=== PATIENT | male | born 1955 | race Two or more races ===

== ENCOUNTER 2017-07-25 07:05 | Outpatient (CLI) | payer OTHER | END 2017-07-25 07:14 | disposition home or self-care (01) | LOC: LAB 07:05 | DX: C7A.010 Malignant carcinoid tumor of the duodenum (principal); C78.7 Secondary malignant neoplasm of liver and intrahepatic bile duct; D51.1 Vitamin B12 deficiency anemia due to selective vitamin B12 malabsorption with proteinuria; D69.3 Immune thrombocytopenic purpura; R97.0 Elevated carcinoembryonic antigen [CEA]; D51.0 Vitamin B12 deficiency anemia due to intrinsic factor deficiency; K31.83 Achlorhydria; K29.40 Chronic atrophic gastritis without bleeding; E53.8 Deficiency of other specified B group vitamins; I10 Essential (primary) hypertension; E03.8 Other specified hypothyroidism; N64.89 Other specified disorders of breast ==

== ENCOUNTER 2017-08-21 08:18 | Outpatient (CLI) | payer OTHER | END 2017-08-21 12:24 | disposition home or self-care (01) | LOC: TOM 08:18 | DX: C7A.010 Malignant carcinoid tumor of the duodenum (principal); C78.7 Secondary malignant neoplasm of liver and intrahepatic bile duct; D51.1 Vitamin B12 deficiency anemia due to selective vitamin B12 malabsorption with proteinuria; D69.3 Immune thrombocytopenic purpura; R97.0 Elevated carcinoembryonic antigen [CEA]; D51.0 Vitamin B12 deficiency anemia due to intrinsic factor deficiency; K31.83 Achlorhydria; K29.40 Chronic atrophic gastritis without bleeding; E53.8 Deficiency of other specified B group vitamins; I10 Essential (primary) hypertension; E03.8 Other specified hypothyroidism ==

== ENCOUNTER 2017-09-19 07:08 | Outpatient (CLI) | payer OTHER | END 2017-09-19 07:20 | disposition home or self-care (01) | LOC: LAB 07:08 | DX: C7A.010 Malignant carcinoid tumor of the duodenum (principal); C78.7 Secondary malignant neoplasm of liver and intrahepatic bile duct; D51.0 Vitamin B12 deficiency anemia due to intrinsic factor deficiency; D69.8 Other specified hemorrhagic conditions; R97.0 Elevated carcinoembryonic antigen [CEA]; K31.83 Achlorhydria; K29.40 Chronic atrophic gastritis without bleeding; E53.8 Deficiency of other specified B group vitamins; I10 Essential (primary) hypertension; E03.8 Other specified hypothyroidism; N60.11 Diffuse cystic mastopathy of right breast; N60.12 Diffuse cystic mastopathy of left breast; D50.8 Other iron deficiency anemias; D51.8 Other vitamin B12 deficiency anemias; R97.8 Other abnormal tumor markers ==

== ENCOUNTER 2017-10-17 10:26 | Emergency (ER) | payer OTHER ==
[~2017-10-17] VITALS: Ht 175.3 cm; Wt 82.1 kg
[2017-10-17] MEDS ORDERED: UROXATRAL10 MG PO (10:48)
[2017-10-17] MEDS ORDERED: LOSARTAN-HCTZ1 EAC2 (10:48)
[2017-10-17] MEDS ORDERED: VITAMIN B-121000 MCG PO (10:49)
[2017-10-17] MEDS ORDERED: AFINITOR10 MG (12:34)
== END 2017-10-17 15:26 | disposition home or self-care (01) ==
LOC: ER 10:26
DX: R50.9 Fever, unspecified (principal); D69.59 Other secondary thrombocytopenia; R53.81 Other malaise

== ENCOUNTER → 2017-10-19 06:20 | Outpatient (CLI) | payer OTHER ==
[~2017-10-19 06:20] MED LIST: AFINITOR10 MG; LOSARTAN-HCTZ1 EAC2; UROXATRAL10 MG PO; VITAMIN B-121000 MCG PO
== END | disposition home or self-care (01) ==
LOC: LAB 06:20
DX: D47.3 Essential (hemorrhagic) thrombocythemia (principal); B34.9 Viral infection, unspecified

== ENCOUNTER 2017-10-20 07:00 | Outpatient (CLI) | payer OTHER | END 2017-10-20 07:16 | disposition home or self-care (01) | LOC: TOM 07:00 | DX: C7A.010 Malignant carcinoid tumor of the duodenum (principal); C78.7 Secondary malignant neoplasm of liver and intrahepatic bile duct; D69.3 Immune thrombocytopenic purpura; R97.0 Elevated carcinoembryonic antigen [CEA]; D51.0 Vitamin B12 deficiency anemia due to intrinsic factor deficiency; K31.83 Achlorhydria; K29.40 Chronic atrophic gastritis without bleeding; E53.8 Deficiency of other specified B group vitamins; I10 Essential (primary) hypertension; E03.8 Other specified hypothyroidism; N64.89 Other specified disorders of breast; I26.99 Other pulmonary embolism without acute cor pulmonale | CPT/HCPCS: 71275 ==

== ENCOUNTER → 2017-10-28 06:19 | Outpatient (CLI) | payer OTHER | END | disposition home or self-care (01) | LOC: LAB 06:19 | DX: C7A.010 Malignant carcinoid tumor of the duodenum (principal); C78.7 Secondary malignant neoplasm of liver and intrahepatic bile duct; D51.1 Vitamin B12 deficiency anemia due to selective vitamin B12 malabsorption with proteinuria; D69.3 Immune thrombocytopenic purpura; R97.0 Elevated carcinoembryonic antigen [CEA]; D51.0 Vitamin B12 deficiency anemia due to intrinsic factor deficiency; K31.83 Achlorhydria; K29.40 Chronic atrophic gastritis without bleeding; E53.8 Deficiency of other specified B group vitamins; E03.8 Other specified hypothyroidism; N64.89 Other specified disorders of breast ==

== ENCOUNTER 2017-12-19 07:08 | Outpatient (CLI) | payer OTHER | END 2017-12-19 07:37 | disposition home or self-care (01) | LOC: LAB 07:08 | DX: C78.7 Secondary malignant neoplasm of liver and intrahepatic bile duct (principal); D51.1 Vitamin B12 deficiency anemia due to selective vitamin B12 malabsorption with proteinuria; C7A.010 Malignant carcinoid tumor of the duodenum; D69.3 Immune thrombocytopenic purpura; R97.0 Elevated carcinoembryonic antigen [CEA]; D51.0 Vitamin B12 deficiency anemia due to intrinsic factor deficiency; K31.83 Achlorhydria; K29.40 Chronic atrophic gastritis without bleeding; I10 Essential (primary) hypertension; D50.8 Other iron deficiency anemias; D51.8 Other vitamin B12 deficiency anemias ==

== ENCOUNTER 2018-02-13 07:09 | Outpatient (CLI) | payer OTHER | END 2018-02-13 07:14 | disposition home or self-care (01) | LOC: LAB 07:09 | DX: C7A.010 Malignant carcinoid tumor of the duodenum (principal); C78.7 Secondary malignant neoplasm of liver and intrahepatic bile duct; D51.1 Vitamin B12 deficiency anemia due to selective vitamin B12 malabsorption with proteinuria; D69.3 Immune thrombocytopenic purpura; R97.0 Elevated carcinoembryonic antigen [CEA]; D51.0 Vitamin B12 deficiency anemia due to intrinsic factor deficiency; K31.83 Achlorhydria; K29.40 Chronic atrophic gastritis without bleeding; E53.8 Deficiency of other specified B group vitamins; I10 Essential (primary) hypertension; E03.8 Other specified hypothyroidism; N64.89 Other specified disorders of breast ==

== ENCOUNTER 2018-03-27 02:06 | Emergency (ER) | payer OTHER ==
[~2018-03-27] VITALS: Ht 175.3 cm; Wt 78.0 kg
[2018-03-27] MEDS ORDERED: SYNTHROID50 MCG (02:44)
[2018-03-27] MEDS ORDERED: KETO10TA2 PO (05:23)
[2018-03-27] MEDS ORDERED: NORFLEX100MG PO (05:23)
== END 2018-03-27 05:30 | disposition home or self-care (01) ==
LOC: ER 02:06
DX: M54.5 Low back pain (principal)

== ENCOUNTER 2018-04-14 13:32 | Emergency (ER) | payer OTHER ==
[~2018-04-14] VITALS: Ht 175.3 cm; Wt 75.7 kg
[~2018-04-14 13:32] MED LIST changes: +KETO10TA2 PO; +NORFLEX100MG PO; +SYNTHROID50 MCG
[2018-04-14] MEDS ORDERED: SANDOSTATIN LAR10 MG (13:38)
== END 2018-04-14 15:48 | disposition home or self-care (01) ==
LOC: ER 13:32
DX: I16.0 Hypertensive urgency (principal); I10 Essential (primary) hypertension; M79.662 Pain in left lower leg; M79.661 Pain in right lower leg

== ENCOUNTER 2018-04-17 07:08 | Outpatient (CLI) | payer OTHER ==
[~2018-04-17 07:08] MED LIST changes: +SANDOSTATIN LAR10 MG
== END 2018-04-17 07:19 | disposition home or self-care (01) ==
LOC: LAB 07:08
DX: C7A.010 Malignant carcinoid tumor of the duodenum (principal); C78.7 Secondary malignant neoplasm of liver and intrahepatic bile duct; D51.1 Vitamin B12 deficiency anemia due to selective vitamin B12 malabsorption with proteinuria; D69.3 Immune thrombocytopenic purpura; R97.0 Elevated carcinoembryonic antigen [CEA]; D51.0 Vitamin B12 deficiency anemia due to intrinsic factor deficiency; K31.83 Achlorhydria; K29.40 Chronic atrophic gastritis without bleeding; E53.8 Deficiency of other specified B group vitamins; I10 Essential (primary) hypertension; E03.8 Other specified hypothyroidism; N64.89 Other specified disorders of breast; D50.8 Other iron deficiency anemias; D51.8 Other vitamin B12 deficiency anemias

== ENCOUNTER 2018-05-31 06:36 | Outpatient (CLI) | payer OTHER | END 2018-05-31 06:40 | disposition home or self-care (01) | LOC: LAB 06:36 | DX: C7A.010 Malignant carcinoid tumor of the duodenum (principal); C78.7 Secondary malignant neoplasm of liver and intrahepatic bile duct; D51.1 Vitamin B12 deficiency anemia due to selective vitamin B12 malabsorption with proteinuria; D69.3 Immune thrombocytopenic purpura; R97.0 Elevated carcinoembryonic antigen [CEA]; D51.0 Vitamin B12 deficiency anemia due to intrinsic factor deficiency; K31.83 Achlorhydria; K29.40 Chronic atrophic gastritis without bleeding; I10 Essential (primary) hypertension; E03.8 Other specified hypothyroidism; N64.89 Other specified disorders of breast; D50.0 Iron deficiency anemia secondary to blood loss (chronic); D51.8 Other vitamin B12 deficiency anemias; R97.8 Other abnormal tumor markers; R97.20 Elevated prostate specific antigen [PSA]; E11.9 Type 2 diabetes mellitus without complications ==

== ENCOUNTER 2018-06-10 16:06 | Outpatient (CLI) | payer OTHER | END 2018-06-10 16:12 | disposition home or self-care (01) | LOC: LAB 16:06 | DX: C7A.010 Malignant carcinoid tumor of the duodenum (principal); Z51.81 Encounter for therapeutic drug level monitoring ==

== ENCOUNTER 2018-06-16 07:12 | Outpatient (CLI) | payer OTHER | END 2018-06-16 07:24 | disposition home or self-care (01) | LOC: TOM 07:12 | DX: C7A.010 Malignant carcinoid tumor of the duodenum (principal); C78.7 Secondary malignant neoplasm of liver and intrahepatic bile duct; D51.1 Vitamin B12 deficiency anemia due to selective vitamin B12 malabsorption with proteinuria; D69.3 Immune thrombocytopenic purpura; R97.0 Elevated carcinoembryonic antigen [CEA]; D51.0 Vitamin B12 deficiency anemia due to intrinsic factor deficiency; K31.83 Achlorhydria; K29.40 Chronic atrophic gastritis without bleeding; E53.8 Deficiency of other specified B group vitamins; I10 Essential (primary) hypertension; E03.8 Other specified hypothyroidism ==

== ENCOUNTER 2018-12-18 07:14 | Outpatient (CLI) | payer OTHER | END 2018-12-18 07:32 | disposition home or self-care (01) | LOC: LAB 07:14 | DX: E03.8 Other specified hypothyroidism (principal); C7A.010 Malignant carcinoid tumor of the duodenum; C78.7 Secondary malignant neoplasm of liver and intrahepatic bile duct; D69.3 Immune thrombocytopenic purpura; R97.0 Elevated carcinoembryonic antigen [CEA]; K31.83 Achlorhydria; K29.40 Chronic atrophic gastritis without bleeding; I10 Essential (primary) hypertension; D50.8 Other iron deficiency anemias; D51.8 Other vitamin B12 deficiency anemias; E78.2 Mixed hyperlipidemia; R97.8 Other abnormal tumor markers ==

== ENCOUNTER → 2019-05-21 07:15 | Outpatient (CLI) | payer OTHER | END | disposition home or self-care (01) | LOC: LAB 07:15 | DX: C7A.010 Malignant carcinoid tumor of the duodenum (principal); C78.7 Secondary malignant neoplasm of liver and intrahepatic bile duct; D69.3 Immune thrombocytopenic purpura; R97.0 Elevated carcinoembryonic antigen [CEA]; K31.83 Achlorhydria; K29.40 Chronic atrophic gastritis without bleeding; I10 Essential (primary) hypertension; E03.8 Other specified hypothyroidism; N63.10 Unspecified lump in the right breast, unspecified quadrant; N63.20 Unspecified lump in the left breast, unspecified quadrant; D50.8 Other iron deficiency anemias; D51.8 Other vitamin B12 deficiency anemias; E78.2 Mixed hyperlipidemia; R97.8 Other abnormal tumor markers ==

== ENCOUNTER 2019-08-06 07:15 | Outpatient (CLI) | payer OTHER | END 2019-08-06 07:26 | disposition home or self-care (01) | LOC: LAB 07:15 | DX: D50.8 Other iron deficiency anemias (principal); I10 Essential (primary) hypertension; C7A.010 Malignant carcinoid tumor of the duodenum; C78.7 Secondary malignant neoplasm of liver and intrahepatic bile duct; D69.3 Immune thrombocytopenic purpura; R97.0 Elevated carcinoembryonic antigen [CEA]; K31.83 Achlorhydria; K29.40 Chronic atrophic gastritis without bleeding; E03.8 Other specified hypothyroidism; N63.10 Unspecified lump in the right breast, unspecified quadrant; N63.20 Unspecified lump in the left breast, unspecified quadrant; D51.8 Other vitamin B12 deficiency anemias; R97.8 Other abnormal tumor markers ==

== ENCOUNTER 2019-08-24 14:40 | Emergency (ER) | payer OTHER ==
[~2019-08-24] VITALS: Ht 175.3 cm; Wt 72.1 kg
[2019-08-24] MEDS ORDERED: GLYCOTROL CAPS1 EACH PO (15:34)
[2019-08-24] MEDS ORDERED: LEVOTHYROXINE25 MCG PO (15:34)
[2019-08-24] MEDS ORDERED: UROXATRAL10 MG PO (15:35)
[2019-08-24] MEDS ORDERED: SOMATULINE (15:35)
[2019-08-24] MEDS ORDERED: ZESTRIL40 M1 PO (15:35)
== END 2019-08-24 21:50 | disposition home or self-care (01) ==
LOC: ER 14:40
DX: J06.9 Acute upper respiratory infection, unspecified (principal); B96.0 Mycoplasma pneumoniae [M. pneumoniae] as the cause of diseases classified elsewhere

== ENCOUNTER → 2019-10-24 | Emergency (ER) | payer OTHER ==
[~2019-10-24] VITALS: Ht 175.3 cm; Wt 72.1 kg
[~2019-10-24] MED LIST changes: +GLYCOTROL CAPS1 EACH PO; +LEVOTHYROXINE25 MCG PO; +SOMATULINE; +UROXATRAL10 MG; +ZESTRIL40 M1 PO; +[UNRECOGNIZED DRUG - OTHER]
== END | disposition home or self-care (01) ==
LOC: ER 10:43
DX: K29.70 Gastritis, unspecified, without bleeding (principal)

== ENCOUNTER 2019-10-27 07:14 | Outpatient (CLI) | payer OTHER | END 2019-10-27 07:20 | disposition home or self-care (01) | LOC: LAB 07:14 | DX: C7A.010 Malignant carcinoid tumor of the duodenum (principal); C78.7 Secondary malignant neoplasm of liver and intrahepatic bile duct; D50.8 Other iron deficiency anemias; I10 Essential (primary) hypertension; E03.8 Other specified hypothyroidism; R97.0 Elevated carcinoembryonic antigen [CEA]; R97.8 Other abnormal tumor markers; D51.1 Vitamin B12 deficiency anemia due to selective vitamin B12 malabsorption with proteinuria; D69.3 Immune thrombocytopenic purpura; D51.0 Vitamin B12 deficiency anemia due to intrinsic factor deficiency; K31.83 Achlorhydria; K29.40 Chronic atrophic gastritis without bleeding ==

== ENCOUNTER 2019-11-26 07:04 | Outpatient (CLI) | payer OTHER | END 2019-11-26 07:14 | disposition home or self-care (01) | LOC: LAB 07:04 | DX: D50.8 Other iron deficiency anemias (principal); I10 Essential (primary) hypertension; C7A.010 Malignant carcinoid tumor of the duodenum; C78.7 Secondary malignant neoplasm of liver and intrahepatic bile duct; D69.3 Immune thrombocytopenic purpura; R97.0 Elevated carcinoembryonic antigen [CEA]; K31.83 Achlorhydria; K29.40 Chronic atrophic gastritis without bleeding; E53.8 Deficiency of other specified B group vitamins; E03.8 Other specified hypothyroidism; N63.0 Unspecified lump in unspecified breast ==

== ENCOUNTER 2019-12-02 07:17 | Outpatient (CLI) | payer OTHER | END 2019-12-02 07:18 | disposition home or self-care (01) | LOC: TOM 07:17 | PROVIDERS: ATTEND Internal Medicine Hematology & Oncology | DX: C7A.010 Malignant carcinoid tumor of the duodenum (principal); C78.7 Secondary malignant neoplasm of liver and intrahepatic bile duct; D69.3 Immune thrombocytopenic purpura; R97.0 Elevated carcinoembryonic antigen [CEA]; K31.83 Achlorhydria; K29.40 Chronic atrophic gastritis without bleeding; E53.8 Deficiency of other specified B group vitamins; I10 Essential (primary) hypertension; E03.8 Other specified hypothyroidism; N63.0 Unspecified lump in unspecified breast ==

== ENCOUNTER → 2020-01-28 07:15 | Outpatient (CLI) | payer OTHER | END | disposition home or self-care (01) | LOC: LAB 07:15 | PROVIDERS: ATTEND Internal Medicine Hematology & Oncology | DX: D50.8 Other iron deficiency anemias (principal); I10 Essential (primary) hypertension; E78.2 Mixed hyperlipidemia; E03.8 Other specified hypothyroidism; R97.0 Elevated carcinoembryonic antigen [CEA]; R97.8 Other abnormal tumor markers; C7A.010 Malignant carcinoid tumor of the duodenum; D69.3 Immune thrombocytopenic purpura; K31.83 Achlorhydria; K29.40 Chronic atrophic gastritis without bleeding; E53.8 Deficiency of other specified B group vitamins; N64.89 Other specified disorders of breast ==

== ENCOUNTER → 2020-04-14 07:11 | Outpatient (CLI) | payer OTHER | END | disposition home or self-care (01) | LOC: LAB 07:11 | PROVIDERS: ATTEND Internal Medicine Hematology & Oncology | DX: D50.8 Other iron deficiency anemias (principal); I10 Essential (primary) hypertension; E03.8 Other specified hypothyroidism; R97.0 Elevated carcinoembryonic antigen [CEA]; R97.8 Other abnormal tumor markers; C7A.010 Malignant carcinoid tumor of the duodenum; C78.7 Secondary malignant neoplasm of liver and intrahepatic bile duct; D69.3 Immune thrombocytopenic purpura; K31.83 Achlorhydria; K29.40 Chronic atrophic gastritis without bleeding; E53.8 Deficiency of other specified B group vitamins; N64.59 Other signs and symptoms in breast ==

== ENCOUNTER → 2020-06-16 07:17 | Outpatient (CLI) | payer OTHER | END | disposition home or self-care (01) | LOC: LAB 07:17 | PROVIDERS: ATTEND Internal Medicine Hematology & Oncology | DX: D50.8 Other iron deficiency anemias (principal); R79.89 Other specified abnormal findings of blood chemistry; I10 Essential (primary) hypertension; R74.02 Elevation of levels of lactic acid dehydrogenase [LDH]; K76.89 Other specified diseases of liver; E03.8 Other specified hypothyroidism; R97.0 Elevated carcinoembryonic antigen [CEA]; R97.8 Other abnormal tumor markers; C7A.010 Malignant carcinoid tumor of the duodenum; C78.7 Secondary malignant neoplasm of liver and intrahepatic bile duct; D69.3 Immune thrombocytopenic purpura; K31.83 Achlorhydria; K29.40 Chronic atrophic gastritis without bleeding; E53.8 Deficiency of other specified B group vitamins ==

== ENCOUNTER 2020-09-15 07:09 | Outpatient (CLI) | payer OTHER | END 2020-09-15 07:19 | disposition home or self-care (01) | LOC: LAB 07:09 | PROVIDERS: ATTEND Internal Medicine Hematology & Oncology | DX: C7A.010 Malignant carcinoid tumor of the duodenum (principal); C78.7 Secondary malignant neoplasm of liver and intrahepatic bile duct; D51.1 Vitamin B12 deficiency anemia due to selective vitamin B12 malabsorption with proteinuria; D69.3 Immune thrombocytopenic purpura; R97.0 Elevated carcinoembryonic antigen [CEA]; D51.0 Vitamin B12 deficiency anemia due to intrinsic factor deficiency; K31.83 Achlorhydria; K29.40 Chronic atrophic gastritis without bleeding; I10 Essential (primary) hypertension; E03.8 Other specified hypothyroidism; N63.0 Unspecified lump in unspecified breast ==

== ENCOUNTER → 2020-12-22 07:11 | Outpatient (CLI) | payer OTHER ==
[~2020-12-22 07:11] MED LIST changes: +ACETAMINOPHEN650 M2 PO; +AMLODIPINE BESYL5 MG PO; +CYANOCOBAL1000 MCG/1 IJ; +DICLOFENAC SODI75 MG PO; +FOLIC ACID1 MG PO; +LISINOPRIL40 MG PO; +MEDROLPACK PO; +METOPROLOL SUCC50 MG PO; +SYNTHROID150 MCG PO
== END | disposition home or self-care (01) ==
LOC: LAB 07:11
PROVIDERS: ATTEND Internal Medicine Hematology & Oncology
DX: C7A.010 Malignant carcinoid tumor of the duodenum (principal); C78.7 Secondary malignant neoplasm of liver and intrahepatic bile duct; D51.1 Vitamin B12 deficiency anemia due to selective vitamin B12 malabsorption with proteinuria; D69.3 Immune thrombocytopenic purpura; R97.0 Elevated carcinoembryonic antigen [CEA]; D51.0 Vitamin B12 deficiency anemia due to intrinsic factor deficiency

== ENCOUNTER 2020-12-22 15:36 | Emergency (ER) | payer OTHER ==
[~2020-12-22] VITALS: Ht 175.3 cm; Wt 75.3 kg
[~2020-12-22 15:36] MED LIST changes: -ACETAMINOPHEN650 M2 PO; -AMLODIPINE BESYL5 MG PO; -CYANOCOBAL1000 MCG/1 IJ; -DICLOFENAC SODI75 MG PO; -FOLIC ACID1 MG PO; -LISINOPRIL40 MG PO; -MEDROLPACK PO; -METOPROLOL SUCC50 MG PO; -SYNTHROID150 MCG PO
[2020-12-22] MEDS ORDERED: METOPROLOL SUCC50 MG PO (15:45)
[2020-12-22] MEDS ORDERED: CYANOCOBAL1000 MCG/1 IJ (15:45)
[2020-12-22] MEDS ORDERED: SYNTHROID150 MCG PO (15:45)
[2020-12-22] MEDS ORDERED: DICLOFENAC SODI75 MG PO (15:45)
[2020-12-22] MEDS ORDERED: FOLIC ACID1 MG PO (15:45)
[2020-12-22] MEDS ORDERED: LISINOPRIL40 MG PO (15:46)
[2020-12-22] MEDS ORDERED: AMLODIPINE BESYL5 MG PO (15:46)
== END 2020-12-22 19:18 | disposition home or self-care (01) ==
LOC: ER 15:36
DX: B34.9 Viral infection, unspecified (principal); R50.9 Fever, unspecified; R10.2 Pelvic and perineal pain

== ENCOUNTER 2021-01-02 16:00 | Outpatient (CLI) | payer OTHER ==
[~2021-01-02 16:00] MED LIST changes: +AMLODIPINE BESYL5 MG PO; +CYANOCOBAL1000 MCG/1 IJ; +DICLOFENAC SODI75 MG PO; +FOLIC ACID1 MG PO; +LISINOPRIL40 MG PO; +METOPROLOL SUCC50 MG PO; +SYNTHROID150 MCG PO
== END 2021-01-02 16:16 | disposition home or self-care (01) ==
LOC: LAB 16:00
PROVIDERS: ATTEND Radiology Diagnostic Radiology
DX: C78.7 Secondary malignant neoplasm of liver and intrahepatic bile duct (principal)

== ENCOUNTER 2021-01-03 09:28 | Outpatient (CLI) | payer OTHER | END 2021-01-03 09:42 | disposition home or self-care (01) | LOC: TOM 09:28 | PROVIDERS: ATTEND Internal Medicine Hematology & Oncology | DX: C7A.010 Malignant carcinoid tumor of the duodenum (principal); C78.7 Secondary malignant neoplasm of liver and intrahepatic bile duct; D69.3 Immune thrombocytopenic purpura; R97.0 Elevated carcinoembryonic antigen [CEA]; K31.83 Achlorhydria; K29.40 Chronic atrophic gastritis without bleeding; E53.8 Deficiency of other specified B group vitamins; I10 Essential (primary) hypertension; E03.8 Other specified hypothyroidism ==

== ENCOUNTER → 2021-01-12 07:06 | Outpatient (CLI) | payer OTHER ==
[~2021-01-12 07:06] MED LIST changes: +ACETAMINOPHEN650 M2 PO; +MEDROLPACK PO
== END | disposition home or self-care (01) ==
LOC: LAB 07:06
PROVIDERS: ATTEND Internal Medicine Hematology & Oncology
DX: D50.8 Other iron deficiency anemias (principal); R79.89 Other specified abnormal findings of blood chemistry; I10 Essential (primary) hypertension; R74.02 Elevation of levels of lactic acid dehydrogenase [LDH]; K76.89 Other specified diseases of liver; C7A.010 Malignant carcinoid tumor of the duodenum; C78.7 Secondary malignant neoplasm of liver and intrahepatic bile duct; D69.3 Immune thrombocytopenic purpura; R97.0 Elevated carcinoembryonic antigen [CEA]; K31.83 Achlorhydria; K29.40 Chronic atrophic gastritis without bleeding; E53.8 Deficiency of other specified B group vitamins; E03.8 Other specified hypothyroidism

== ENCOUNTER 2021-02-01 20:14 | Emergency (ER) | payer OTHER ==
[~2021-02-01] VITALS: Ht 175.3 cm; Wt 73.5 kg
[~2021-02-01 20:14] MED LIST changes: -ACETAMINOPHEN650 M2 PO; -MEDROLPACK PO
== END 2021-02-01 23:37 | disposition home or self-care (01) ==
LOC: ER 20:14
DX: M54.5 Low back pain (principal)

== ENCOUNTER 2021-02-05 06:47 | Emergency (ER) | payer OTHER ==
[~2021-02-05] VITALS: Ht 175.3 cm; Wt 74.8 kg
[2021-02-05] MEDS ORDERED: MEDROLPACK PO (09:15)
[2021-02-05] MEDS ORDERED: ACETAMINOPHEN650 M2 PO (09:16)
== END 2021-02-05 09:39 | disposition home or self-care (01) ==
LOC: ER 06:47
DX: M54.5 Low back pain (principal)

== ENCOUNTER 2021-03-16 07:08 | Outpatient (CLI) | payer OTHER ==
[~2021-03-16 07:08] MED LIST changes: +ACETAMINOPHEN650 M2 PO; +MEDROLPACK PO
== END 2021-03-16 07:18 | disposition home or self-care (01) ==
LOC: LAB 07:08
PROVIDERS: ATTEND Internal Medicine Hematology & Oncology
DX: D50.8 Other iron deficiency anemias (principal); R79.89 Other specified abnormal findings of blood chemistry; I10 Essential (primary) hypertension; R74.02 Elevation of levels of lactic acid dehydrogenase [LDH]; K76.89 Other specified diseases of liver; C7A.010 Malignant carcinoid tumor of the duodenum; C78.7 Secondary malignant neoplasm of liver and intrahepatic bile duct; D69.3 Immune thrombocytopenic purpura; R97.0 Elevated carcinoembryonic antigen [CEA]; K31.83 Achlorhydria; K29.40 Chronic atrophic gastritis without bleeding; E53.8 Deficiency of other specified B group vitamins; E03.8 Other specified hypothyroidism

== ENCOUNTER 2021-03-16 07:35 | Emergency (ER) | payer OTHER ==
[~2021-03-16] VITALS: Ht 175.3 cm; Wt 75.3 kg
== END 2021-03-16 12:10 | disposition home or self-care (01) ==
LOC: ER 07:35
DX: M54.42 Lumbago with sciatica, left side (principal)

== ENCOUNTER 2021-05-30 15:37 | Emergency (ER) | payer OTHER ==
[~2021-05-30] VITALS: Ht 175.3 cm; Wt 72.6 kg
== END 2021-05-30 20:35 | disposition home or self-care (01) ==
LOC: ER 15:37
DX: E86.0 Dehydration (principal); E87.8 Other disorders of electrolyte and fluid balance, not elsewhere classified; R11.2 Nausea with vomiting, unspecified

== ENCOUNTER 2021-06-04 12:13 | Emergency (ER) | payer OTHER ==
[~2021-06-04] VITALS: Ht 175.3 cm; Wt 70.3 kg
[2021-06-04] MEDS ORDERED: ZOLEDRONIC ACID4 MG IV (12:53)
[2021-06-04] MEDS ORDERED: ONDANSETRON ODT4 MG PO (16:41)
[2021-06-04] MEDS ORDERED: ONDANSETRON4 MG/2 M2 IJ (16:41)
[2021-06-04] MEDS ORDERED: PEPCID AC20 MG PO (16:42)
== END 2021-06-04 20:05 | disposition home or self-care (01) ==
LOC: ER 12:13
DX: K29.00 Acute gastritis without bleeding (principal); E86.0 Dehydration; E87.8 Other disorders of electrolyte and fluid balance, not elsewhere classified; C79.51 Secondary malignant neoplasm of bone; R10.13 Epigastric pain

== ENCOUNTER 2021-06-25 06:59 | Outpatient (CLI) | payer OTHER ==
[~2021-06-25 06:59] MED LIST changes: +ONDANSETRON ODT4 MG PO; +ONDANSETRON4 MG/2 M2 IJ; +PEPCID AC20 MG PO; +ZOLEDRONIC ACID4 MG IV
== END 2021-06-25 07:05 | disposition home or self-care (01) ==
LOC: MRI 06:59
PROVIDERS: ATTEND Pain Medicine Interventional Pain Medicine
DX: M48.07 Spinal stenosis, lumbosacral region (principal); M54.59 Other low back pain
CPT/HCPCS: 72148

== ENCOUNTER 2021-07-02 06:23 | Outpatient (CLI) | payer OTHER | END 2021-07-02 06:25 | disposition home or self-care (01) | LOC: LAB 06:23 | PROVIDERS: ATTEND Internal Medicine Hematology & Oncology | DX: D50.8 Other iron deficiency anemias (principal); R79.89 Other specified abnormal findings of blood chemistry; I10 Essential (primary) hypertension; R74.02 Elevation of levels of lactic acid dehydrogenase [LDH]; K76.89 Other specified diseases of liver; E03.8 Other specified hypothyroidism; C7A.010 Malignant carcinoid tumor of the duodenum; C79.51 Secondary malignant neoplasm of bone; C78.7 Secondary malignant neoplasm of liver and intrahepatic bile duct; D51.1 Vitamin B12 deficiency anemia due to selective vitamin B12 malabsorption with proteinuria; D69.3 Immune thrombocytopenic purpura; R97.0 Elevated carcinoembryonic antigen [CEA]; D51.0 Vitamin B12 deficiency anemia due to intrinsic factor deficiency; K31.83 Achlorhydria; K29.40 Chronic atrophic gastritis without bleeding ==

== ENCOUNTER 2021-07-15 18:59 | Inpatient (IN) | payer OTHER ==
[~2021-07-15] VITALS: Ht 182.9 cm; Wt 113.4 kg
[2021-07-22] MEDS ORDERED: GASTRACE CAPSU1 EACH (16:28)
[2021-07-22] MEDS ORDERED: GABAPENTIN300 M2 (16:28)
[2021-07-22] MEDS ORDERED: IBUPROFEN600 MG (16:29)
[2021-07-22] MEDS ORDERED: ONDANSETRON HCL4 MG (16:29)
[2021-07-22] MEDS ORDERED: TRAMADOL HCL50 MG (16:29)
[2021-07-22] MEDS ORDERED: CYCLOBENZAPRINE10 MG (16:29)
[2021-07-22] MEDS ORDERED: PANTOPRAZOLE SO40 MG (16:29)
== END 2021-08-01 13:13 | disposition home or self-care (01) | DRG 673 ==
LOC: ER 18:59 → ICU-2 07-16 02:16 → MEDI 07-19 10:25 → SURH 07-27 11:43
PROVIDERS: ADMIT Internal Medicine; ATTEND Internal Medicine
PROC: BW21ZZZ Computerized Tomography (CT Scan) of Abdomen and Pelvis (ICD-10-PCS; 2021-07-15)
PROC: 30233N1 Transfusion of Nonautologous Red Blood Cells into Peripheral Vein, Percutaneous Approach (ICD-10-PCS; 2021-07-18)
PROC: 4A12X4Z Monitoring of Cardiac Electrical Activity, External Approach (ICD-10-PCS; 2021-07-19)
PROC: B54DZZZ Ultrasonography of Bilateral Lower Extremity Veins (ICD-10-PCS; 2021-07-29)
PROC: 0JB90ZZ Excision of Buttock Subcutaneous Tissue and Fascia, Open Approach (ICD-10-PCS; principal; 2021-07-30)
DX: N39.0 Urinary tract infection, site not specified (principal); A41.89 Other specified sepsis; R65.20 Severe sepsis without septic shock; N17.8 Other acute kidney failure; L89.313 Pressure ulcer of right buttock, stage 3; C79.51 Secondary malignant neoplasm of bone; C78.7 Secondary malignant neoplasm of liver and intrahepatic bile duct; E34.0 Carcinoid syndrome; E87.2 Acidosis; D63.0 Anemia in neoplastic disease; K52.9 Noninfective gastroenteritis and colitis, unspecified; E86.0 Dehydration; N13.8 Other obstructive and reflux uropathy; N40.1 Benign prostatic hyperplasia with lower urinary tract symptoms; R53.81 Other malaise; B96.1 Klebsiella pneumoniae [K. pneumoniae] as the cause of diseases classified elsewhere; L89.312 Pressure ulcer of right buttock, stage 2; L08.9 Local infection of the skin and subcutaneous tissue, unspecified; E88.09 Other disorders of plasma-protein metabolism, not elsewhere classified

== ENCOUNTER 2021-08-23 11:30 | Inpatient (IN) | payer OTHER ==
[~2021-08-23] VITALS: Ht 167.6 cm; Wt 65.8 kg
[~2021-08-23 11:30] MED LIST changes: +CYCLOBENZAPRINE10 MG; +GABAPENTIN300 M2; +GASTRACE CAPSU1 EACH; +IBUPROFEN600 MG; +ONDANSETRON HCL4 MG; +PANTOPRAZOLE SO40 MG; +TRAMADOL HCL50 MG
== END 2021-08-26 15:32 | disposition home or self-care (01) | DRG 377 ==
LOC: ER 11:30 → MEDJ 21:12
PROVIDERS: ADMIT Internal Medicine; ATTEND Internal Medicine
PROC: 3E0F7SF Introduction of Other Gas into Respiratory Tract, Via Natural or Artificial Opening (ICD-10-PCS; principal; 2021-08-23)
PROC: BW21YZZ Computerized Tomography (CT Scan) of Abdomen and Pelvis using Other Contrast (ICD-10-PCS; 2021-08-23)
PROC: 8E0ZXY6 Isolation (ICD-10-PCS; 2021-08-23)
DX: K62.5 Hemorrhage of anus and rectum (principal); L89.313 Pressure ulcer of right buttock, stage 3; C78.7 Secondary malignant neoplasm of liver and intrahepatic bile duct; C79.51 Secondary malignant neoplasm of bone; D63.0 Anemia in neoplastic disease; E86.0 Dehydration

== ENCOUNTER 2021-09-11 13:01 | Emergency (ER) | payer OTHER ==
[~2021-09-11] VITALS: Ht 175.3 cm; Wt 63.5 kg
== END 2021-09-11 21:07 | disposition home or self-care (01) ==
LOC: ER 13:01
DX: E86.0 Dehydration (principal); I10 Essential (primary) hypertension; E03.9 Hypothyroidism, unspecified

== ENCOUNTER 2021-10-02 15:28 | Inpatient (IN) | payer OTHER ==
[~2021-10-02] VITALS: Ht 165.1 cm; Wt 63.5 kg
[2021-10-03] MEDS ORDERED: ONDANSETRON HCL8 MG (08:09)
[2021-10-03] MEDS ORDERED: INTESTINEX680 M1 (08:09)
[2021-10-03] MEDS ORDERED: POTASSIUM CHLOR8 MEQ (08:10)
[2021-10-03] MEDS ORDERED: GASTRACE CAPSU1 EACH (08:10)
[2021-10-03] MEDS ORDERED: ABANEU-SL TABL1 EACH (08:10)
[2021-10-03] MEDS ORDERED: GABAPENTIN300 M2 (08:10)
[2021-10-03] MEDS ORDERED: SOMATULINE (08:11)
[2021-10-03] MEDS ORDERED: CYANOCOBAL1000 MCG/1 (11:04)
== END 2021-10-15 01:00 | disposition expired | DRG 374 ==
LOC: ER 15:28 → SEC-K 21:35 → MEDJ 10-03 16:47
PROVIDERS: ADMIT Internal Medicine; ATTEND Internal Medicine
PROC: 8E0ZXY6 Isolation (ICD-10-PCS; 2021-10-02)
PROC: 30233N0 Transfusion of Autologous Red Blood Cells into Peripheral Vein, Percutaneous Approach (ICD-10-PCS; 2021-10-03)
PROC: 02HV33Z Insertion of Infusion Device into Superior Vena Cava, Percutaneous Approach (ICD-10-PCS; 2021-10-03)
PROC: 3E0436Z Introduction of Nutritional Substance into Central Vein, Percutaneous Approach (ICD-10-PCS; 2021-10-03)
PROC: 0W993ZZ Drainage of Right Pleural Cavity, Percutaneous Approach (ICD-10-PCS; 2021-10-07)
PROC: 0W9B30Z Drainage of Left Pleural Cavity with Drainage Device, Percutaneous Approach (ICD-10-PCS; principal; 2021-10-08)
PROC: 5A0945A Assistance with Respiratory Ventilation, 24-96 Consecutive Hours, High Flow/Velocity Cannula (ICD-10-PCS; 2021-10-10)
DX: C7A.019 Malignant carcinoid tumor of the small intestine, unspecified portion (principal); K55.039 Acute (reversible) ischemia of large intestine, extent unspecified; A41.59 Other Gram-negative sepsis; J91.0 Malignant pleural effusion; D63.0 Anemia in neoplastic disease; N39.0 Urinary tract infection, site not specified; N17.8 Other acute kidney failure; C78.7 Secondary malignant neoplasm of liver and intrahepatic bile duct; C79.51 Secondary malignant neoplasm of bone; C18.9 Malignant neoplasm of colon, unspecified; E86.0 Dehydration; A08.8 Other specified intestinal infections